=== PATIENT | female | born 1995 | race American Indian/Alaskan Native ===

== ENCOUNTER 2017-05-22 13:12 | Inpatient (IN) | payer MEDICAID ==
--- NOTE | 2017-05-22 14:04 | Emergency Department Report ---
ED Chest Pain HPI - General Chief Complaint: Back Pain/Injury Stated Complaint: CHEST PAIN/HEADACHES/BACK PAIN Time Seen by Provider: 05/22/17 13:51 Source: patient Mode of arrival: Ambulatory Limitations: No Limitations - History of Present Illness Initial Comments: Pt is a 21 yr old F with no PMhx who presents with multiple complaints. Pt reports she woke up this morning SOB, central chest pain, upper back pain, and a headache. Pt reports the pains are intermittent, 10/10, and the headache in frontal. Pt just had a vaginal delivery 6 days prior. Her was uncomplicated and she was discharged without any issues. Exacerbated with movement and deep inspirations. Upon triage patient had a SBP >180 and currently it remains at 175. Otherwise no dizziness, blurry vision, NVD, abdominal pains, extremity swelling/pain, travel, or sick contacts. - Related Data Home Medications Medication Instructions Recorded Confirmed Last Taken Ibuprofen [Motrin] 800 mg PO Q8HR PRN 05/22/17 05/22/17 05/22/17 07:00 Allergies Allergy/AdvReac Type Severity Reaction Status Date / Time No Known Allergies Allergy Verified 05/22/17 13:19 Heart Score - HEART Score History: Slightly suspicious EKG: Normal Age: < 45 Risk factors: No known risk factors Troponin: < normal limit HEART Score: 0 ED Review of Systems ROS: Stated complaint: CHEST PAIN/HEADACHES/BACK PAIN Other details as noted in HPI ED Past Medical Hx - Past Medical History Previous Medical History?: No - Surgical History Additional Surgical History: milad placed left upper arm - Social History Smoking Status: Never Smoker Substance Use Type: None - Medications Home Medications: Home Medications Medication Instructions Recorded Confirmed Last Taken Type Ibuprofen [Motrin] 800 mg PO Q8HR PRN 05/22/17 05/22/17 05/22/17 07:00 History ED Physical Exam - General Limitations: No Limitations General appearance: alert, in no apparent distress - Head Head exam: Present: atraumatic, normocephalic - Eye Eye exam: Present: normal appearance, PERRL, EOMI. Absent: scleral icterus, conjunctival injection, nystagmus Pupils: Present: normal accommodation. Absent: irregular, unequal - ENT ENT exam: Present: normal exam, mucous membranes moist - Neck Neck exam: Present: normal inspection. Absent: tenderness, meningismus - Respiratory Respiratory exam: Present: normal lung sounds bilaterally. Absent: respiratory distress - Cardiovascular Cardiovascular Exam: Present: regular rate, normal rhythm. Absent: systolic murmur, diastolic murmur, rubs, gallop - GI/Abdominal GI/Abdominal exam: Present: soft, normal bowel sounds. Absent: distended, tenderness, guarding, rebound, rigid - External exam: Present: bleeding (lochia ) - Extremities Exam Extremities exam: Present: normal inspection - Back Exam Back exam: Present: normal inspection - Neurological Exam Neurological exam: Present: alert, oriented X3 - Psychiatric Psychiatric exam: Present: normal affect, normal mood - Skin Skin exam: Present: warm, dry, intact, normal color. Absent: rash ED Course Vital Signs 05/22/17 05/22/17 05/22/17 13:22 13:48 13:51 Temperature 98.9 F Pulse Rate 55 L 58 L Respiratory 18 18 Rate Blood Pressure 173/94 Blood Pressure 173/98 [Right] O2 Sat by Pulse 100 100 100 Oximetry 05/22/17 05/22/17 05/22/17 14:00 14:04 14:16 Temperature Pulse Rate 61 58 L 61 Respiratory 19 18 13 Rate Blood Pressure 173/95 177/90 Blood Pressure 177/90 [Right] O2 Sat by Pulse 100 99 99 Oximetry 05/22/17 05/22/17 05/22/17 14:44 15:11 15:15 Temperature Pulse Rate 58 L Respiratory 18 21 Rate Blood Pressure 177/90 177/90 Blood Pressure [Right] O2 Sat by Pulse 100 100 99 Oximetry 05/22/17 05/22/17 05/22/17 15:31 15:45 16:01 Temperature Pulse Rate 56 L 55 L 55 L Respiratory 17 21 22 Rate Blood Pressure 175/87 181/106 153/77 Blood Pressure [Right] O2 Sat by Pulse 98 99 98 Oximetry 05/22/17 16:15 Temperature Pulse Rate 54 L Respiratory 13 Rate Blood Pressure 147/73 Blood Pressure [Right] O2 Sat by Pulse 99 Oximetry LESLEI score - Leslie Score Age > 65: (0) No Aspirin use within the Past 7 Days: (0) No 3 or more CAD Risk Factors: (0) No 2 or more Angina events in past 24 hrs: (0) No Known CAD with more than 50% Stenosis: (0) No Elevated Cardiac Markers: (0) No ST Deviation Greater than 0.5mm: (0) No LESLIE Score: 0 ED Medical Decision Making - Lab Data Result diagrams: 05/22/17 13:45 05/22/17 13:45 - EKG Data -: EKG Interpreted by Me - EKG Data 05/22/17 14:08 ekg 1325 Sinus Bradycardia at 56 bpm, QTc:405ms, normal axis, no LVH, no St changes, no STEMI - Medical Decision Making Concern for pre-eclampsia, ordered Mg Sulfate 4gm Patient's SBP improved to the 140's, ordered Mg Sulfate 2gm/hr Case d/w Dr Vazquez, patient to be admitted to mother baby and to have Mg levels checked q6hr, which I ordered. Critical care attestation.: If time is entered above; I have spent that time in minutes in the direct care of this critically ill patient, excluding procedure time. ED Disposition Clinical Impression: Preeclampsia, SOB (shortness of breath), Headache, Chest pain Disposition: OP ADMIT IP TO THIS HOSP Is pt being admited?: Yes Condition: Serious
--- NOTE | 2017-05-22 14:07 | Admit Criteria Form ---
Admission Criteria Documentation: HYPERTENSIVE DISORDERS OF Clinical Indications for Admission to Inpatient Care (Place 'X' for any and all applicable criteria): Admission is indicated for ANY ONE of the following (1)(2)(3)(4)(5): [ ]I. Eclampsia[A][B] [ X]II. Preeclampsia with severe features (ie, severe preeclampsia) indicated by ANY ONE of the following[B][C]: [X ]a) SBP greater than or equal to 160 mm Hg or DBP greater than or equal to 110 mm Hg on 2 occasions at least 4 hours apart while the patient is at bed rest (unless antihypertensive therapy is initiated before this time) [ ]b) Platelet count less than 100,000/mm3 (100 x109/L) [ ]c) Impaired liver function as indicated by ANY ONE of the following: [ ]i. Elevation of liver enzymes (eg, SGOT, SGPT) to twice normal concentration [ ]ii. Severe persistent right upper quadrant or epigastric pain unresponsive to medication and not accounted for by alternative diagnosis [ ]d) Progressive renal insufficiency indicated by ANY ONE of the following: [ ]i. Serum creatinine concentration greater than 1.1 mg/dL (97 micromoles/L) [ ]ii. Doubling (from baseline) of serum creatinine concentration in the absence of other renal disease [ ]e) Pulmonary edema [X ]f) Cerebral or visual symptoms (eg, headache, Altered mental status, changes in vision) [ ]III. Delivery planned due to nonsevere preeclampsia as indicated by ALL of the following: [ ]a) Nonsevere preeclampsia present as indicated by ALL of the following: [ ]i. Woman at 20 or more weeks' gestation [ ]ii. New-onset SBP greater than or equal to 140 mm Hg but less than 160 mm Hg or DBP greater than or equal to 90 mm Hg but less than 110 mm Hg on 2 occasions at least 4 hours apart [ ]iii. Proteinuria present as indicated by ANY ONE of the following: [ ]A. Urinary protein excretion greater than or equal to 300 mg per 24-hour collection (or this amount extrapolated from a shorter timed collection) [ ]B. Protein/creatinine ratio greater than or equal to 0.3 (measured in mg/dL) [ ]b) Delivery indicated due to ANY ONE of the following: [ ]i. Gestational age of 37 0/7 weeks or more [ ]ii. Gestational age of 34 0/7 weeks to 36 6/7 weeks and ANY ONE of the following: [ ]A. Progressive labor or rupture of membranes [ ]B. Abnormal biophysical profile [ ]C. Suspected abruptio placentae [ ]D. Ultrasound estimate of weight less than 5th percentile [ ]E. Other indication for delivery [ ]IV. Delivery planned due to gestational hypertension[D] because of ANY ONE of the following: [ ]a) Delivery indicated because gestational age of 37 0/7 weeks or more has been reached [ ]b) Gestational age of 34 0/7 weeks to 36 6/7 weeks for which delivery is indicated because of ANY ONE of the following: [ ]i. Progressive labor or rupture of membranes [ ]ii. Abnormal biophysical profile [ ]iii. Suspected abruptio placentae [ ]iv. Ultrasound estimate of weight less than 5th percentile [ ]v. Other indication for delivery [ ]V. Hypertension of any category[E] during with acute end organ damage as indicated by ANY ONE of the following: [ ]a) Hypertensive encephalopathy (eg, Altered mental status that is severe or persistent )(11) [ ]b) Cerebral infarction [ ]c) Intracranial hemorrhage [ ]d) Myocardial ischemia or infarction [ ]e) Pulmonary edema [ ]f) Aortic dissection [ ]g) Seizure [ ]h) Papilledema [ ]i) Microangiopathic hemolytic anemia [ ]j) Visual loss [ ]k) Acute renal failure [ ]) Hypertension during with evidence of compromise as indicated by ANY ONE of the following: [ ]a) Abnormal heart tones [ ]b) Abnormal stress test [ ]c) Abnormal biophysical profile [ ]VII) patient requires inpatient control of blood pressure indicated by (see Hypertensive Disorders of : Observation Care [facility] guideline as appropriate) ALL of the following: [ ]a) SBP is greater than or equal to 160 mm Hg or DBP is greater than or equal to 105 mm Hg [ ]b) Blood pressure cannot be reduced below these levels with outpatient or observation care treatment (eg, oral medications not effective) Extended stay beyond goal length of stay may be needed for : [ ]a) Eclampsia [ ]b) Ongoing compromise [ ]c) Complications of hypertensive disorders of [ ]d) Active comorbidities (eg, heart failure, poorly controlled diabetes, renal insufficiency) [ ]e) Persistent hypertension [ ]f) Delivery planned The original [facility] content created by [facility] has been revised. The portions of the content which have been revised are identified through the use of italic text or in bold, and [facility] has neither reviewed nor approved the modified material. All other unmodified content is copyright [facility]. Please see references footnoted in the original [facility] edition 2016. Admission Criteria Met: Yes
[2017-05-22 14:11] LABS: Basophils % (Auto) 0.4 % (0.0-1.8); Eosinophils % (Auto) 1.8 % (0.0-4.3); Hematocrit 31.4 % (30.3-42.9); Hemoglobin 10.5 gm/dl (10.1-14.3); Mean Corpuscular HGB Conc 34 % (30-34); Mean Corpuscular Hemoglobin 33 pg (28-32); Mean Corpuscular Volume 98 fl (79-97); Platelet Count 316 K/mm3 (140-440); Red Blood Count 3.21 M/mm3 (3.65-5.03); Red Cell Distribution Width 13.7 % (13.2-15.2); White Blood Count 6.3 K/mm3 (4.5-11.0)
[2017-05-22] MEDS ORDERED: MAGNESIUM SULFATE 4GM/100ML 4 GM/100 ML BAG IV ONE (14:30)
[2017-05-22 14:31] LABS: Creatine Kinase MB 1.8 ng/mL (0.0-4.0)
[2017-05-22 14:33] LABS: Alanine Aminotransferase 47 units/L (7-56); Albumin 3.6 g/dL (3.9-5); Alkaline Phosphatase 95 units/L (35-129); Anion Gap 20 mmol/L; Blood Urea Nitrogen 7 mg/dL (7-17); Calcium 8.9 mg/dL (8.4-10.2); Carbon Dioxide 21 mmol/L (22-30); Chloride 105.9 mmol/L (98-107); Creatine Kinase 105 units/L (30-135); Glucose 86 mg/dL (65-100); Potassium 3.9 mmol/L (3.6-5.0); Sodium 143 mmol/L (137-145); Total Protein 7.3 g/dL (6.3-8.2)
[2017-05-22] MEDS ORDERED: NACL ONE (14:34)
[2017-05-22 14:37] LABS: Bilirubin,Direct < 0.2 mg/dL (0-0.2); Bilirubin,Indirect 0.1 mg/dL
[2017-05-22 14:38] LABS: INR 1.14 (0.87-1.13)
[2017-05-22 14:39] LABS: Partial Thromboplastin Time 30.5 Sec. (24.2-36.6)
--- NOTE | 2017-05-22 15:01 | Cat Scan Report ---
CRANIAL CT SCAN: History: headache. Serial contiguous axial images were obtained through the cranium. Intravenous contrast material was not administered. The ventricles are normal in size and appearance. There is no mass effect or midline shift. No areas of abnormally increased or decreased attenuation are seen. No mass lesion is seen. The mastoid air cells and visualized portions of the sinuses are normal. IMPRESSION: Cranial CT scan within normal limits.
--- NOTE | 2017-05-22 15:05 | Cat Scan Report ---
CT angiography of the chest with 3-D distorted images. History: Chest pain and shortness of breath one week . Findings: The technical quality of the study is suboptimal due to patient's body habitus. There is no definite evidence of pulmonary and lie. The lungs are clear. There is a small right pleural effusion and/or posterior right pleural thickening. Impression: 1. No evidence of pulmonary emboli with above-noted technical limitations. 2. Minimal right posterior pleural thickening and/or small effusion.
[2017-05-22 15:35] LABS: Bilirubin,Urine NEG (Negative); Blood,Urine LG (Negative); Ketones,Urine NEG (Negative); Leukocyte Esterase,Urine LG (Negative); Mucus,Urine FEW /HPF; Nitrite,Urine NEG (Negative); Urobilinogen,Urine < 2.0 mg/dL (<2.0)
[2017-05-22 15:37] LABS: RBC,Urine > 182.0 /HPF (0.0-6.0); WBC,Urine > 182.0 /HPF (0.0-6.0)
[2017-05-22] MEDS ORDERED: TYLENOL PO ONE (15:45)
[2017-05-22] MEDS ORDERED: TYLENOL ONE (15:45)
[2017-05-22] MEDS ORDERED: TORADOL IV ONE (15:45)
[2017-05-22] MEDS ORDERED: TORADOL ONE (15:45)
[2017-05-22] MEDS ORDERED: APRESOLINE IV ONE (16:07)
[2017-05-22] MEDS ORDERED: APRESOLINE ONE (16:16)
--- NOTE | 2017-05-22 16:17 | XRay Report ---
CHEST TWO VIEWS: 05/22/17 13:12:00 CLINICAL: Chest pain. COMPARISON: None FINDINGS: A large body habitus and underexpansion of the lungs accentuates the heart size. Normal pulmonary vessels. The lungs are clear.The bones and soft tissues are unremarkable. IMPRESSION: Normal chest.
[2017-05-22] MEDS: MAGNESIUM SULFATE 40GM/1000ML 40 GM/1,000 ML BAG IV SCH (17:33)
[2017-05-22] MEDS ORDERED: NACL 0.9% 1000 ML 1,000 ML ONE (19:40)
[2017-05-22] MEDS ORDERED: LACTATED RINGERS 1,000 ML IV SCH (20:07)
[2017-05-22] MEDS ORDERED: APRESOLINE IV PRN (20:07)
--- NOTE | 2017-05-22 20:12 | History and Physical Report ---
History of Present Illness Date of examination: 05/22/17 Date of admission: 05/22/17 16:40 Chief complaint: Headache, elevated blood pressures History of present illness: This is a 21-year-old female status post uncomplicated that culminated in anormal vaginal delivery approximately 1Week ago. She started experiencing headache with chest pain and back pain last PM.She was instructed by her customer success associate to present to the nearest hospital for evaluation. Her systolic blood pressures were noted to be 170s to 180s.CT scans of her head and chest were negative.Her chest x-ray was negative. She is admitted now with the diagnosis of preeclampsia and will receive Magnesium sulfate prophylactic therapy and blood pressure control. Past History Past Medical History: no pertinent history Past Surgical History: other (Left arm surgery) Social history: no significant social history Medications and Allergies Allergies Allergy/AdvReac Type Severity Reaction Status Date / Time No Known Allergies Allergy Verified 05/22/17 13:19 Home Medications Medication Instructions Recorded Confirmed Last Taken Type Ibuprofen [Motrin] 800 mg PO Q8HR PRN 05/22/17 05/22/17 05/22/17 07:00 History Active Meds: Active Medications Hydralazine HCl (Apresoline) 10 mg IV ONCE PRN PRN Reason: Blood Pressure Magnesium Sulfate (Magnesium Sulfate 40gm/1000ml) 40 gm in 1,000 mls @ 50 mls/ hr IV DIRECT PATRICIA PRN Reason: 2 GM/HR Last Admin: 05/22/17 17:33 Dose: 2 gm/hr, 50 mls/hr Lactated Ringer's (Lactated Ringers) 1,000 mls @ 125 mls/hr IV DIRECT PATRICIA Review of Systems All systems: negative - Vital Signs Vital signs: Vital Signs Temp Pulse Resp BP Pulse Ox 98.9 F 55 L 18 173/94 100 05/22/17 13:22 05/22/17 13:22 05/22/17 13:22 05/22/17 13:22 05/22/17 13:22 Temp Pulse Resp BP Pulse Ox 98.9 F 78 22 126/70 99 05/22/17 13:22 05/22/17 18:01 05/22/17 18:01 05/22/17 18:01 05/22/17 18:01 - Physical Exam Breasts: Positive: deferred Cardiovascular: Regular rate Lungs: Positive: Clear to auscultation, Normal air movement Abdomen: Positive: normal appearance, soft. Negative: tenderness Extremities: Positive: normal Deep Tendon Reflex Grade: Normal +2 Results Result Diagrams: 05/22/17 13:45 05/22/17 13:45 All other labs normal. CT scan - abdomen: report reviewed Chest x-ray: report reviewed Assessment and Plan - Patient Problems (1) Preeclampsia Current Visit: Yes Status: Acute Qualifiers: Trimester: T Plan to address problem: 1.Magnesium sulfate therapy 2. Blood pressure control
[2017-05-22] MEDS ORDERED: BENADRYL PO NR (23:45)
[2017-05-23] MEDS: MOTRIN PO PRN ×4 (00:51→21:07)
--- NOTE | 2017-05-23 08:40 | Progress Note ---
Assessment and Plan patient resting w/ c/o PENALOZA but states chest pain is now relieved. Mag 2gm infusing x 24h, labile b/p 120-160/60-80 without antihypertensive medications. output good. Continue current management and will consider d/c home tomorrow if stable. - Patient Problems (1) Pre-eclampsia in period Current Visit: Yes Status: Acute Subjective - Subjective Date of service: 05/23/17 Principal diagnosis: Pre-e readmit, 7 days post vaginal delivery Patient reports: appetite normal, voiding normally, pain well controlled, ambulating normally, other (+PENALOZA, no epigastric pain or visual changes) : other (in room with patient and support person) Objective - Vital Signs Latest vital signs: Vital Signs Temp Pulse Pulse Resp BP BP Pulse Ox 05/23/17 06:05 98.9 F 79 20 121/63 05/23/17 03:14 98.2 F 114 H 20 151/88 05/23/17 01:32 97.8 F 104 H 20 151/87 05/23/17 00:51 20 05/22/17 23:31 98.8 F 105 H 22 144/84 05/22/17 22:24 98.9 F 127 H 20 163/87 05/22/17 20:00 98.0 F 96 H 20 122/86 100 05/22/17 18:01 78 22 126/70 99 05/22/17 17:45 57 L 18 155/87 99 05/22/17 17:31 58 L 17 155/87 100 05/22/17 17:15 57 L 26 H 162/78 99 05/22/17 17:01 65 22 162/85 98 05/22/17 16:45 59 L 15 162/85 99 Intake and Output 05/22/17 05/23/17 05/23/17 22:59 06:59 14:59 Intake Total 490 750 Output Total 600 Balance -110 750 Intake: IV 250 750 MAGNESIUM SULFATE 40GM/ 100 300 1000ML 40 gm In 1,000 ml @ 2 GM/HR 50 mls/hr IV DIRECT ON LICENSE OF [facility] Rx#:[id number] NaCl 0.9% 1000 ml 1,000 150 450 ml As .ROUTE [facility] Rx#:[id number] Oral 240 Output: Urine 600 Void 600 Other: Total, Intake Amount 240 Total, Output Amount 600 - Exam Breasts: Present: normal Cardiovascular: Present: Regular rate Lungs: Present: Clear to auscultation, Normal air movement Abdomen: Present: normal appearance, soft Uterus: Present: normal, firm Extremities: Present: normal Deep Tendon Reflex Grade: Normal +2 - Labs Labs: Abnormal lab results 05/22/17 05/23/17 05/23/17 Range/Units 22:50 01:40 06:05 Magnesium 4.30 H 4.40 H 4.60 H (1.7-2.3) mg/dL
[2017-05-23] MEDS: MAGNESIUM SULFATE 40GM/1000ML 40 GM/1,000 ML BAG IV SCH (12:30)
[2017-05-24] MEDS: MOTRIN PO PRN (05:45)
--- NOTE | 2017-05-24 06:25 | Discharge Summary ---
Providers - Providers Date of Admission: 05/22/17 16:40 Date of discharge: 05/24/17 (pt asking to go home) Attending physician: EDWARD SHARMA Primary care physician: BIOINFORMAT[employer] ASSISTANT Hospitalization Reason for admission: elevated BP Condition: Good Hospital course: Pt presented 7 days s/p vag delivery with elevated BP PreE Responded well to rest and MGSO4 therapy. Pt is w/o c/o PENALOZA, blurred vision, chest pain. "I'm ready to go home." BP 150-130 /80-60 DTRs wnl Minimal edema in LE. Pt tolerating diet and all nl activities. Doing well. P: d/c today encouraged f/ u with her OB provider tomorrow. Pt voiced understanding. All questions addressed. Disposition: DC-01 TO HOME OR SELFCARE - Discharge Diagnoses (1) Pre-eclampsia in period Status: Acute Comment: pt is to f/u CARLOS with her OB provider Core Measure Documentation - Palliative Care Palliative Care/ Comfort Measures: Not Applicable - Core Measures Any of the following diagnoses?: none - VTE Discharge Requirements Deep Vein Thrombosis/Pulmonary Embolism Present on Admission: No Has pt received <5 days of overlap therapy or INR<2.0: No Anticoagulant overlap therapy prescribed at discharge: No Contraindication No Overlap Therapy order at DC: Not Indicated - Acute NC Discharge Requirements Aspirin at discharge: No Reason for no aspirin on DC: Medical contraindication RADHA/ARB for LVSD if EF <40%: Not Applicable Reason for no RADHA/ARB: Medical contraindication Beta elizabeth at discharge: No Reason for no beta elizabeth on DC: Medical contraindication Statin for LDL = or >100 mg/dl on DC: Not Applicable - Heart Failure Discharge Requirements RADHA/ARB for LVSD if EF <40%: Not Applicable Reason for no RADHA/ARB: Medical contraindication Beta elizabeth at discharge: No Reason for no beta eliazbeth on DC: Medical contraindication - Stroke Discharge Requirements Statin for LDL = or >70 mg/dl on DC: Not Applicable Reason for no statin on DC: Not Indicated Anticoag for atrial fib/atrial flutter: Not Applicable Reason for no anticoag for AF/F on DC: Not Indicated Antithrombotic for ischemic stroke: No Reason for no antithrombotic on DC: Not Indicated Exam - Constitutional Vitals: Temp Pulse Resp BP Pulse Ox 98.7 F 65 18 137/78 100 05/24/17 04:25 05/24/17 04:05/24/17 05:45 05/24/17 04:05/22/17 20:00 General appearance: Present: no acute distress, well-nourished - EENT Eyes: Present: PERRL ENT: hearing intact - Neck Neck: Present: supple, normal ROM - Respiratory Respiratory effort: normal Respiratory: bilateral: CTA - Cardiovascular Heart rate: 84 Rhythm: regular Heart Sounds: Present: S1 & S2. Absent: rub, click - Extremities Extremities: pulses symmetrical Extremity abnormal: edema (+1 pitting below knee) Peripheral Pulses: within normal limits - Abdominal General gastrointestinal: Present: deferred Female genitourinary: Present: normal - Rectal Rectal Exam: deferred - Integumentary Integumentary: Present: clear, warm, dry - Musculoskeletal Musculoskeletal: strength equal bilaterally - Psychiatric Psychiatric: appropriate mood/affect (no s/sx of PP blues or depression) - Neurologic Neurologic: gait normal Plan Activity: advance as tolerated Weight Bearing Status: Full Weight Bearing Diet: low salt Follow up with: PRIMARY CARE, [Primary Care Provider] - 7 Days ASCENCION DE LA VEGA CNM [Advanced Practice Nurse] - 3 Days (Please follow up with your OB provider as soon as possible. Call them immediately with any headache, blurred vision, chest pain. Avoid dietary salt/sodium and drink at least 48 oz of water daily. [facility] # [phone].)
[2017-05-24 11:49] VITALS: BP 157/91
== END 2017-05-24 10:55 | disposition home or self-care (01) | DRG 776 ==
LOC: ED 13:12 → OB 16:40
PROVIDERS: ADMIT Obstetrics & Gynecology; ATTEND Obstetrics & Gynecology
DX: O14.95 Unspecified pre-eclampsia, complicating the puerperium (principal)
CPT/HCPCS: 36415; 70450; 71020; 71275; 80048; 80074; 81001; 82550; 82553; 83615; 83735; 84484; 85025; 85379; 85610; 85730; 86850; 86900; 86901; 93005; 93010; 96365; 96366; 96375; 99211; G0463; J0360; J1885; J3475; J7030; J7120; Q9967